=== PATIENT | male | born 1965 | race Two or more races ===

== ENCOUNTER → 2017-04-02 | Outpatient (CLI) | payer OTHER | END | disposition home or self-care (01) | LOC: PPH VACUNA 16:38 | DX: Z23 Encounter for immunization (principal) ==

== ENCOUNTER → 2017-05-28 | Outpatient (CLI) | payer OTHER | END | disposition home or self-care (01) | LOC: PPH VACUNA 09:06 | DX: Z23 Encounter for immunization (principal) ==

== ENCOUNTER 2021-12-25 13:19 | Outpatient (CLI) | payer OTHER | END 2021-12-25 13:20 | disposition home or self-care (01) | LOC: LAB 13:19 | PROVIDERS: ATTEND Internal Medicine Pulmonary Disease | DX: D64.9 Anemia, unspecified (principal); R10.2 Pelvic and perineal pain; E03.9 Hypothyroidism, unspecified; E78.5 Hyperlipidemia, unspecified; E55.9 Vitamin D deficiency, unspecified; E11.9 Type 2 diabetes mellitus without complications; R73.9 Hyperglycemia, unspecified; N40.0 Benign prostatic hyperplasia without lower urinary tract symptoms; Z12.5 Encounter for screening for malignant neoplasm of prostate ==

== ENCOUNTER 2022-02-14 14:10 | Outpatient (CLI) | payer OTHER | END 2022-02-14 14:15 | disposition home or self-care (01) | LOC: PPH VACUNA 14:10 | PROVIDERS: ATTEND Emergency Medicine Pediatric Emergency Medicine | DX: Z23 Encounter for immunization (principal) ==

== ENCOUNTER 2022-05-07 14:10 | Outpatient (CLI) | payer OTHER | END 2022-05-07 15:06 | disposition home or self-care (01) | LOC: LAB 14:10 | PROVIDERS: ATTEND Internal Medicine | DX: Z11.3 Encounter for screening for infections with a predominantly sexual mode of transmission (principal) ==

== ENCOUNTER 2022-06-24 15:18 | Outpatient (CLI) | payer OTHER | END 2022-06-24 15:35 | disposition home or self-care (01) | LOC: RAD 15:18 | PROVIDERS: ATTEND Radiology Vascular & Interventional Radiology | DX: Z02.79 Encounter for issue of other medical certificate (principal) ==

== ENCOUNTER 2022-10-17 15:25 | Outpatient (CLI) | payer OTHER | END 2022-10-17 16:29 | disposition home or self-care (01) | LOC: LAB 15:25 | DX: D64.9 Anemia, unspecified (principal); N39.0 Urinary tract infection, site not specified; R10.9 Unspecified abdominal pain; E03.9 Hypothyroidism, unspecified; E78.5 Hyperlipidemia, unspecified; E55.9 Vitamin D deficiency, unspecified; R80.9 Proteinuria, unspecified; E11.9 Type 2 diabetes mellitus without complications; N40.0 Benign prostatic hyperplasia without lower urinary tract symptoms; Z12.5 Encounter for screening for malignant neoplasm of prostate; N52.9 Male erectile dysfunction, unspecified ==

== ENCOUNTER 2022-12-31 18:58 | Inpatient (IN) | payer OTHER ==
[~2022-12-31] VITALS: Ht 172.7 cm; Wt 159.7 kg
--- NOTE | 2022-12-31 19:23 | NUR ---
PACIENTE REFIERE VOMITOS, DIARREA Y FIEBRE DESDE EL SABADO.
--- NOTE | 2022-12-31 19:36 | NUR ---
SE ORIENTA PTE SOBRE TX MEDICO EL CUAL REFIERE ENTENDER.SE LE EXTRAEN MUESTRAS BAJO MEDIDAS ASEPTICAS,SE CANALIZA Y SE ADMINISTRAN MEDICAMENTOS BARBIE ORDEN MEDICA.
[2022-12-31 19:54] LABS: HEMATOCRIT 49.7 % (39.0-48.0); HEMOGLOBIN 16.9 g/dL (13-16.00); MEAN CELL VOLUME 87.9 fL (80.0-100.00); MEAN CORPUSCULAR HGB CONC 34.1 g/dl (32.0-36.0); RED BLOOD COUNT 5.65 M/uL (4.00-6.00); RED CELL DISTRIBUTION WIDTH 12.6 % (11.5-14.5)
[2022-12-31 20:07] LABS: ALBUMIN 3.5 gm/dL (3.4-5.0); BILIRUBIN TOTAL 0.58 mg/dL (0.3-1.2); CALCIUM 8.8 mg/dL (8.5-10.1); CREATININE SERUM 1.34 mg/dL (0.70-1.30); GFR 54.75; GLOBULINA 3.6 G/DL (2.4-3.5); POTASSIUM 5.13 mEq/L (3.5-5.1); TOTAL PROTEIN 7.1 gm/dL (6.4-8.2)
[2022-12-31 20:27] LABS: PLATELET COUNT 12 K/uL (150-450)
--- NOTE | 2022-12-31 22:04 | NUR ---
RE-EVALUA PTE. SE ORIENTA A PTE SOBRE TX MEDICO, REFIERE ENTENDER. SE COLECTAN MUESTRAS PARA 20 UNIDADES DE PLAQUETAS Y TUBO DE TIPO Y SAMANTHA. SE PROVEE CONSENTIMIENTO PARA TRANSFUSION, PTE Y MD FIRMA DOCUMENTO, SE ANEJA DOCUMENTO A EXPEDIENTE MEDICO. SE NOTIFICA A ([facility]).
[2023-01-01 02:57] LABS: ERYTHROCYTE SEDIMENTATION RATE 2 mm/hr
[2023-01-01 03:15] LABS: INR 1.21; PROTHROMBIN TIME 12.5 SECONDS (9.0-11.5)
[2023-01-01 03:16] LABS: PARTIAL THROMBOPLASTIN TIME 49.3 SECONDS (22.0-34.0)
[2023-01-01 04:10] LABS: PLT IN CITRATE 10 K/uL (150-450)
[2023-01-01 05:53] LABS: PH,URINE 5.5 (5.0-8.0); URINE APPEARANCE Clear; URINE BILIRRUBIN Negative (NEGATIVE); URINE BLOOD Negative; URINE COLOR Yellow; URINE GLUCOSE Negative (NEGATIVE); URINE LEUKOCYTE Negative; URINE NITRATE Negative; URINE PROTEIN Negative (NEGATIVE)
[2023-01-01 05:56] LABS: URINE BACTERIA 6.2 uL (0.0-1933); URINE EPITHELIAL CELLS 3.2 uL (0.0-38.8); URINE RBC 2.2 uL (0.0-20.8)
[2023-01-01 10:45] LABS: MEAN CORPUSCULAR HGB CONC 34.1 g/dl (32.0-36.0); RED CELL DISTRIBUTION WIDTH 12.3 % (11.5-14.5)
[2023-01-01 11:39] LABS: PLATELET COUNT 12 K/uL (150-450)
[2023-01-01] MEDS ORDERED: COZAAR100 MG PO (13:32)
[2023-01-01] MEDS ORDERED: GLIMEPIRIDE4 MG PO (13:33)
[2023-01-01 18:26] LABS: HEMATOCRIT 44.9 % (39.0-48.0); MEAN CELL VOLUME 87.9 fL (80.0-100.00); MEAN CORPUSCULAR HEMOGLOBIN 29.4 pg (27.00-32.0); MEAN CORPUSCULAR HGB CONC 33.5 g/dl (32.0-36.0); RED BLOOD COUNT 5.11 M/uL (4.00-6.00); RED CELL DISTRIBUTION WIDTH 12.4 % (11.5-14.5)
[2023-01-01 19:57] LABS: PLATELET COUNT 23 K/uL (150-450)
[2023-01-02 07:02] LABS: HEMOGLOBIN 14.6 g/dL (13-16.00); MEAN CELL VOLUME 85.7 fL (80.0-100.00); MEAN CORPUSCULAR HEMOGLOBIN 30.6 pg (27.00-32.0); MEAN CORPUSCULAR HGB CONC 35.7 g/dl (32.0-36.0); RED BLOOD COUNT 4.79 M/uL (4.00-6.00); RED CELL DISTRIBUTION WIDTH 12.4 % (11.5-14.5)
[2023-01-02 08:23] LABS: MANUAL PLATELET COUNT 20; PLATELET COUNT 19 K/uL (150-450)
[2023-01-02 08:25] LABS: PLATELET ESTIMATE DECREASED (NORMAL)
[2023-01-02 12:55] LABS: BILIRUBIN TOTAL 0.66 mg/dL (0.3-1.2); CALCIUM 8.1 mg/dL (8.5-10.1); CREATININE SERUM 0.88 mg/dL (0.70-1.30); GFR 88.94; GLOBULINA 3.2 G/DL (2.4-3.5); POTASSIUM 4.73 mEq/L (3.5-5.1); TOTAL PROTEIN 6.2 gm/dL (6.4-8.2)
[2023-01-02 19:01] LABS: HEMATOCRIT 40.5 % (39.0-48.0); HEMOGLOBIN 13.8 g/dL (13-16.00); MEAN CELL VOLUME 86.9 fL (80.0-100.00); MEAN CORPUSCULAR HEMOGLOBIN 29.5 pg (27.00-32.0); RED BLOOD COUNT 4.67 M/uL (4.00-6.00); RED CELL DISTRIBUTION WIDTH 12.2 % (11.5-14.5)
[2023-01-02 19:03] LABS: PLATELET COUNT 46 K/uL (150-450)
[2023-01-02 19:07] LABS: MANUAL PLATELET COUNT 62
[2023-01-03 06:51] LABS: HEMATOCRIT 38.2 % (39.0-48.0); HEMOGLOBIN 13.6 g/dL (13-16.00); MEAN CELL VOLUME 85.9 fL (80.0-100.00); MEAN CORPUSCULAR HEMOGLOBIN 30.5 pg (27.00-32.0); MEAN CORPUSCULAR HGB CONC 35.6 g/dl (32.0-36.0); RED BLOOD COUNT 4.45 M/uL (4.00-6.00); RED CELL DISTRIBUTION WIDTH 12.8 % (11.5-14.5)
[2023-01-03 08:20] LABS: PLATELET COUNT 26 K/uL (150-450)
[2023-01-04 10:38] LABS: HEMATOCRIT 37.1 % (39.0-48.0); HEMOGLOBIN 13.1 g/dL (13-16.00); MEAN CELL VOLUME 86.3 fL (80.0-100.00); MEAN CORPUSCULAR HEMOGLOBIN 30.6 pg (27.00-32.0); MEAN CORPUSCULAR HGB CONC 35.5 g/dl (32.0-36.0); RED CELL DISTRIBUTION WIDTH 12.6 % (11.5-14.5)
[2023-01-04 11:27] LABS: PLATELET COUNT 19 K/uL (150-450)
[2023-01-04 12:38] LABS: HEMATOCRIT 41.1 % (39.0-48.0); MEAN CORPUSCULAR HEMOGLOBIN 29.9 pg (27.00-32.0); RED BLOOD COUNT 4.67 M/uL (4.00-6.00); RED CELL DISTRIBUTION WIDTH 12.6 % (11.5-14.5)
[2023-01-04 13:28] LABS: PLATELET COUNT 66 K/uL (150-450)
[2023-01-04 15:01] LABS: MANUAL PLATELET COUNT 30
[2023-01-05 07:22] LABS: ALBUMIN 2.9 gm/dL (3.4-5.0); BILIRUBIN TOTAL 0.66 mg/dL (0.3-1.2); CALCIUM 8.6 mg/dL (8.5-10.1); CREATININE SERUM 0.77 mg/dL (0.70-1.30); GFR 103.76; GLOBULINA 3.4 G/DL (2.4-3.5); HEMATOCRIT 39.5 % (39.0-48.0); HEMOGLOBIN 13.6 g/dL (13-16.00); MEAN CELL VOLUME 87.3 fL (80.0-100.00); MEAN CORPUSCULAR HGB CONC 34.4 g/dl (32.0-36.0); POTASSIUM 4.31 mEq/L (3.5-5.1); RED BLOOD COUNT 4.53 M/uL (4.00-6.00); RED CELL DISTRIBUTION WIDTH 12.7 % (11.5-14.5); TOTAL PROTEIN 6.3 gm/dL (6.4-8.2)
[2023-01-05 08:50] LABS: PLATELET COUNT 37 K/uL (150-450)
[2023-01-06 06:55] LABS: HEMATOCRIT 40.5 % (39.0-48.0); HEMOGLOBIN 14.4 g/dL (13-16.00); MEAN CELL VOLUME 86.6 fL (80.0-100.00); MEAN CORPUSCULAR HEMOGLOBIN 30.7 pg (27.00-32.0); MEAN CORPUSCULAR HGB CONC 35.5 g/dl (32.0-36.0); RED BLOOD COUNT 4.68 M/uL (4.00-6.00); RED CELL DISTRIBUTION WIDTH 12.8 % (11.5-14.5)
[2023-01-06 07:32] LABS: PLATELET COUNT 61 K/uL (150-450)
[2023-01-06 08:13] LABS: MANUAL PLATELET COUNT 96
[2023-01-06 08:14] LABS: PLATELET ESTIMATE DECREASED (NORMAL)
== END 2023-01-06 19:43 | disposition home or self-care (01) | DRG 866 ==
LOC: ER 18:58 → MEDJ 23:10
PROVIDERS: General Practice; Internal Medicine Endocrinology, Diabetes & Metabolism; Internal Medicine Hematology & Oncology; ADMIT Internal Medicine; ATTEND Internal Medicine
PROC: 30233R1 Transfusion of Nonautologous Platelets into Peripheral Vein, Percutaneous Approach (ICD-10-PCS; principal; 2023-01-01)
DX: A90 Dengue fever [classical dengue] (principal); N17.9 Acute kidney failure, unspecified; B34.9 Viral infection, unspecified; D69.6 Thrombocytopenia, unspecified; E86.0 Dehydration; E11.65 Type 2 diabetes mellitus with hyperglycemia; Z79.4 Long term (current) use of insulin; I10 Essential (primary) hypertension

== ENCOUNTER 2023-01-10 11:25 | Outpatient (CLI) | payer OTHER ==
[~2023-01-10 11:25] MED LIST: COZAAR100 MG PO; GLIMEPIRIDE4 MG PO
[2023-01-10 12:13] LABS: HEMATOCRIT 41.3 % (39.0-48.0); HEMOGLOBIN 13.5 g/dL (13-16.00); MEAN CELL VOLUME 88.3 fL (80.0-100.00); MEAN CORPUSCULAR HEMOGLOBIN 28.9 pg (27.00-32.0); MEAN CORPUSCULAR HGB CONC 32.7 g/dl (32.0-36.0); PLATELET COUNT 136 K/uL (150-450); RED BLOOD COUNT 4.68 M/uL (4.00-6.00); RED CELL DISTRIBUTION WIDTH 12.8 % (11.5-14.5)
[2023-01-10 12:49] LABS: ALBUMIN 3.5 gm/dL (3.4-5.0); BILIRUBIN TOTAL 0.89 mg/dL (0.3-1.2); CALCIUM 8.8 mg/dL (8.5-10.1); CREATININE SERUM 0.89 mg/dL (0.70-1.30); GFR 87.79; GLOBULINA 3.8 G/DL (2.4-3.5); POTASSIUM 4.34 mEq/L (3.5-5.1); PROSTATIC SPECIFIC ANTIGEN 2.27 NG/ML (0.010-4.00); TOTAL PROTEIN 7.3 gm/dL (6.4-8.2)
[2023-01-10 12:58] LABS: MANUAL PLATELET COUNT 246
== END 2023-01-10 11:26 | disposition home or self-care (01) ==
LOC: LAB 11:25
PROVIDERS: ATTEND Internal Medicine Hematology & Oncology
DX: I10 Essential (primary) hypertension (principal); R97.0 Elevated carcinoembryonic antigen [CEA]; C18.0 Malignant neoplasm of cecum; C61 Malignant neoplasm of prostate

== ENCOUNTER 2023-01-23 15:00 | Outpatient (CLI) | payer OTHER | END 2023-01-23 15:10 | disposition home or self-care (01) | LOC: PPH VACUNA 15:00 | PROVIDERS: ATTEND Emergency Medicine Pediatric Emergency Medicine | DX: Z23 Encounter for immunization (principal) | CPT/HCPCS: 90686; G0008 ==

== ENCOUNTER 2023-06-04 13:31 | Outpatient (CLI) | payer OTHER | END 2023-06-04 13:39 | disposition home or self-care (01) | LOC: LAB 13:31 | PROVIDERS: ATTEND Internal Medicine | DX: Z11.0 Encounter for screening for intestinal infectious diseases (principal) ==